=== PATIENT | female | born 1945 | race Caucasian/White ===

== ENCOUNTER → 2017-02-19 | Outpatient (CLI) | payer OTHER ==
--- NOTE | 2017-02-19 14:05 | DIAGNOSTIC IMAGING REPORT ---
L HAND MIN 3 VIEWS ROUTINE CLINICAL HISTORY: M25.532 pain COMPARISON: None. DISCUSSION: Moderate degenerative change of the first carpometacarpal joint and to a lesser extent remaining intercarpal as well as interphalangeal joints. Slight periarticular osteopenia. Mild soft tissue edema. IMPRESSION: Moderate degenerative change. Mild periarticular osteopenia. Possibility of early rheumatoid/versus rheumatoid variant must be considered The above report was generated using voice recognition software. It may contain grammatical, syntax or spelling errors. Electronically signed by: Rommel Meyer M.D. 02/19/2017 2:03 PM Dictated Date/Time: 02/19/2017 2:03 PM
--- NOTE | 2017-02-19 14:07 | DIAGNOSTIC IMAGING REPORT ---
L WRIST MIN 3 VIEWS ROUTINE CLINICAL HISTORY: M25.532 pain COMPARISON: None. DISCUSSION: Moderate degenerative change first carpometacarpal joint. Minimal/mild degenerative change of the intercarpal as well as radiocarpal joints. Bony mineralization throughout is diminished. Mild soft tissue edema is present. No evidence for fracture or dislocation. 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 No acute process. The above report was generated using voice recognition software. It may contain grammatical, syntax or spelling errors. Electronically signed by: Rommel Meyer M.D. 02/19/2017 2:06 PM Dictated Date/Time: 02/19/2017 2:04 PM
== END | disposition home or self-care (01) ==
LOC: C.RAD1850 13:41
PROVIDERS: ATTEND Family Medicine
DX: M25.532 Pain in left wrist (principal)